=== PATIENT | female | born 1945 | race Caucasian/White ===

== ENCOUNTER 2023-06-18 12:00 | Emergency (ER) | payer MEDICARE, BC, SELFPAY ==
[2023-06-18 12:02] VITALS: BP 115/73
--- NOTE | 2023-06-18 14:05 | ED.GENMED ---
History of Present Illness
General
Chief Complaint: Fall
Source: patient
Time Seen by Provider: 06/18/23 13:21
Travel History
Have you had any contact with someone who has COVID-19?: No
Do you have any symptoms of coronavirus? Fever > 100 degrees, chills, cough, shortness of breath, sore throat, loss of taste or smell, muscle aches, or headache?: No
History of Present Illness
History of Present Illness:
77-year-old female with past medical history of hypertension presenting to the emergency department for evaluation after she had an accidental fall on her bathroom tile this morning injuring her right hip and hitting the right side of her face onto
the ground as well. Patient states that most of the pain is within the right and worsens with palpation and ambulation but does note she was able to ambulate following the fall. Patient denies any use of anticoagulants, denies loss of
consciousness, no vomiting, currently no headache, visual disturbances or any other extremity related concerns. Patient did not take anything for pain prior to arrival but does note she takes tramadol for chronic back pain and is requesting this
medication here as well.
Past History
Past History
ED Past Medical History: HTN
ED Past Surgical History: Gynecological, Orthopedic and Tonsilectomy
Social History
Tobacco: Non-smoker
Alcohol: None
Drug: None
Personal:
Living: alone
Review of Systems
Review of Systems
All Other Systems: ROS reviewed and negative except as documented in HPI and ROS
Phy Exam
Physical Exam
Physical Exam:
GENERAL: Alert , in no apparent distress, smiling and pleasant
Head: Small contusion to the right lateral periorbital space
EYE: conjunctiva clear
NECK: Supple, no midline tenderness
ENT: o/p clr, mmm.
CARDIAC: Regular rate and rhythm
LUNGS: Clear breath sounds bilaterally, no acute respiratory distress, no wheezes/rales/rhonchi
NEUROLOGICAL: Alert and oriented
SKIN: Warm and dry, skin intact.
MUSCULOSKELETAL: tenderness over the right lateral aspect of the hip the patient allows for full active and passive range of motion with no difficulty. Remainder of the right lower extremity is within normal limits and without signs of trauma.
upper extremities without any signs of trauma he has full range of motion
PSYCH: Normal and appropriate interaction.
Scores
Heart Failure Risk
Heart Failure Risk Score: Not Applicable
Heart Score for Chest Pain Patients
STEMI patient?: Not applicable
Withdrawal Assessment of Alcohol
Withdrawal Assessment Completed?: Not applicable
Course
Orders/Labs/Results
Orders:
Orders
06/18/23 12:04
Hip, Right 2-3 Views [CR Hip - RT w/wo Pel 2-3 Vw*] Urgent
Comment:
Reason For Exam: pain
Include a pelvis x-ray?: Yes
06/18/23 13:45
CT Head W/o Iv Contrast Urgent
Comment:
Reason For Exam: fall, right sided head injury
06/18/23 14:36
Tramadol HCl [Ultram] 50 mg PO NOW STA
Vital Signs
Initial and Last Documented VS:
Initial Vital Signs
Temp Pulse Resp BP Pulse Ox
98.5 F 74 18 115/73 98
06/18/23 12:02 06/18/23 12:02 06/18/23 12:02 06/18/23 12:02 06/18/23 12:02
Last Documented Vital Signs
Temp Pulse Resp BP Pulse Ox
98.5 F 74 18 115/73 98
06/18/23 12:02 06/18/23 12:02 06/18/23 12:02 06/18/23 12:02 06/18/23 12:02
MDM/Problems Addressed
Differential Diagnosis Includes:
Right hip contusion, right hip fracture, prosthesis fracture or dislocation, intracranial bleeding, facial contusion
MDM/Problems Addressed:
77-year-old female presented emergency department for evaluation following an accidental fall earlier today, patient notes most of her pain is within the right lateral last hip notes she was able to ambulate following the fall. X-ray had been
ordered by triage team and there does not appear to be any fracture and the prosthesis remains intact. Will obtain a CT of the head for further evaluation. Tramadol ordered for pain control. Anticipate discharge home pending CT.
*Radiology
Radiology exam reviewed: preliminary read by ED provider (No fracture) and radiology read reviewed
*Pulse Oximetry
Patient hypoxic: no
*Critical Care Note
Total Time (30-74mins, 75-104mins- exclusive of procedures): Not Applicable
Patient Management
Escalation/DeEscalation of care consider admission/obs:
Patient CT unremarkable. She is stable for discharge home and aware of return precautions.
ED Attending Note
-
Portions of this chart may have been created with voice recognition software.� Occasional wrong word or��sound alike� substitutions may have occurred due to the inherent limitations of voice recognition software.
Discharge Plan
Departure
Patient Disposition: Home (Routine Discharge)
Date of Disposition: 06/18/23
Time of Disposition: 15:16
Patient with high blood pressure during this ER visit?: No
Discharge Problem:
Accidental fall, Hip pain, right, Contusion of face
Instructions: Preventing falls in adults
Prescriptions:
No Action
carvedilol phosphate 40 MG capsule, ER multiphase 24 hr
40 mg PO HS
naproxen-diphenhydramine [Aleve PM] 1 EACH tablet
1 ea PO PRN PRN (Reason: sleep/pain)
Patient Comments:
patient notes she last took this weeks ago
mupirocin 1 APPLIC ointment
1 applic intranasal BID Qty: 1 0RF
Patient Comments:
patient applied this am 06/10/18, and has started on Sunday06/08/18..has been applying BID to nares
hyoscyamine sulfate 0.125 MG tablet,disintegrating
1 tab PO DAILY
sennosides [senna] 1 TABLET tablet
2 tab PO BID 0RF
acetaminophen 325 MG tablet
650 mg PO QID 0RF
magnesium hydroxide 30 ML suspension
30 ml PO DAILYPRN PRN (Reason: constipation) 0RF
aspirin 325 MG tablet,delayed release (DR/EC)
325 mg PO DAILY 0RF
docusate sodium 100 MG capsule
100 mg PO BID 0RF
oxycodone 5 MG tablet
5 mg PO Q4HPRN PRN (Reason: moderate-severe pain) Qty: 45 0RF
Rx Instructions:
1 tab moderate pain or 2 if pain severe
dx eliezer
ongoing
amlodipine 5 MG tablet
5 mg PO DAILY Qty: 1 0RF
Rx Instructions:
hold systolic blood pressure <135
valsartan [Diovan] 320 MG tablet
320 mg PO DAILY Qty: 0 0RF
Rx Instructions:
hold systolic blood pressure <130
Referrals:
Jarett Barros MD [Family Provider] -
Interventions
Interventions:
*Risk Screen - Suicide Last Done: 06/18/23 12:02
*General Assessment Last Done: 06/18/23 12:02
*Neglect/Abuse Screening Last Done: 06/18/23 12:02
*ED COVID-19 Vaccine History Last Done: 06/18/23 12:02
*Nursing Disposition Last Done: 06/18/23 15:22
ED-Musculoskeletal Assessment Last Done: 06/18/23 13:25
ED- Neurological Assessment Last Done: 06/18/23 13:25
ED-Skin Assessment Last Done: 06/18/23 13:25
Discharge Date and Time
Discharge Date/Time: 06/18/23 15:22
[2023-06-18] MEDS: ULTRAM 50 MG PO (14:39)
== END 2023-06-18 15:22 | disposition home or self-care (01) ==
LOC: EMR 12:00
PROVIDERS: EMERGENCY PHYSICIAN Emergency Medicine; FAMILY PHYSICIAN Family Medicine
DX: S00.83XA Contusion of other part of head, initial encounter (principal); M25.551 Pain in right hip; W18.30XA Fall on same level, unspecified, initial encounter; I10 Essential (primary) hypertension; G89.29 Other chronic pain; M54.9 Dorsalgia, unspecified; Z96.641 Presence of right artificial hip joint; Z79.82 Long term (current) use of aspirin; Z88.2 Allergy status to sulfonamides; Z88.8 Allergy status to other drugs, medicaments and biological substances
CPT/HCPCS: 99284; 70450; 73502

== ENCOUNTER → 2024-08-29 15:25 | Outpatient (REF) | payer MEDICARE, BC, SELFPAY | LOC: RCS 15:25 | PROVIDERS: ATTENDING PHYSICIAN Pain Medicine Interventional Pain Medicine; FAMILY PHYSICIAN Family Medicine | DX: Z01.818 Encounter for other preprocedural examination (principal) | CPT/HCPCS: 93005 ==